=== PATIENT | female | born 1960 ===

== ENCOUNTER 2020-05-11 15:29 | Emergency (ER) | payer MEDICARE, MEDICAID ==
[2020-05-12 02:55] LABS: SARS-CoV-2 MS2 Positive; SARS-CoV-2 N Gene Negative; SARS-CoV-2 S Gene Negative; SARS-CoV-2 by NAA Not Detected (NotDetected); SARS-CoV-2 orf1ab Negative
== END 2020-05-11 16:34 | disposition home or self-care (01) ==
LOC: ERS 15:29
DX: Z20.822 Contact with and (suspected) exposure to COVID-19 (principal)
CPT/HCPCS: 99283; U0003; 87635